=== PATIENT | male | born 2000 | race Caucasian/White ===

== ENCOUNTER 2021-04-13 15:30 | Outpatient (RCR) | payer OTHER, SELFPAY ==
--- NOTE | 2021-03-24 11:35 | HP.OTEVAL_ITS ---
Patient's Visit Information LENNY MORTON is a 20 year old M, referred to Occupational Therapy by VANESSA PGEUERO, with a diagnosis of right radial head fx / left Monteggia fx. Date of Evaluation: 03/22/21 Occupational Therapist: Katarina Reyes, OTR/L, CHT - Subjective This 20 year old male was seen for OT with dx of left Monteggia fracture -right radial head fx. pt had fall at college and friend took pt to ER- rec'd pt to see UE specialist and they were able to get apt with [facility]. pt has sx on 02/28/2021. pt is 3 weeks and 1 day s/p arrives to session with bilateral hinge elbow braces correctly on. pts mom with pt and states he will return to college in about 4 weeks and will not be able to continue with therapy at this facility- - ROM Shoulder: right/left WNL Elbow: right -50/110 left -60/120 Forearm: right supination 30* left 75* pronation R/L WNL - Strength Strength Comments: will test at later date - Sensation Sensation Comments: denies - Quick DASH-Disab of Arm,Shoulder& Hand Quick DASH Score: 40.0000 - Goals Goal:: hold strengthening until pt in 6-8 weeks s/p Goal:: pt will demo right elbow ROM to -10/135 or greater and left elbow ROM to -5/135 or greater to increase pts ind. with ADLs. pt will demo right forearm supination to 70* or greater to perform ADLs at ind, level by d/c Goal:: pt will report in 3 weeks he is able to use BUE for self feeding/dressing and bathing - Rehabilitation General Assessment: pt arrives 3 weeks 1 days s/p from right radial head open reduction total fixation and right lateral collateral lig. repair. Left medial collateral ligament repair- left Monteggia fx open reduction internal fixation- left lateral epicondyle open reduction internal fixation 02/28/21 - please provide eval tx- start hinge brace at 90* extension 10-15* per week as tolerated. pt limited with functional use of bilateral UE with ADls. pt would benefit from skilled OT services 2x week for 6 weeks to assist in pts full recovery of his ROM and strength. Today therapist ed. pt on ROM and use of hinge braces- mom was with pt entire session- both demo understanding and agree to POC. Rehabilitation Potential: Good - Anticipated Interventions A/AAROM/PROM, Modalities, Joint Protection/Energy Conservation, Ergonomic Education, Education re Diagnosis - Visit Plan Frequency: 2x /Week Duration: 6 Weeks General Plan: pt arrives 3 weeks 1 days s/p from right radial head open reduction total fixation and right lateral collateral lig. repair. Left medial collateral ligament repair- left Monteggia fx open reduction internal fixation- left lateral epicondyle open reduction internal fixation 02/28/21 - please provide eval tx- start hinge brace at 90* extension 10-15* per week as tolerated. TEXT: Thank you for the opportunity to evaluate your patient. For Medicare and Medicare HMO plans, please review the plan of care and approve it. It will need to be FAXED BACK to us at [phone] for Medicare purposes. Please let me know if there are questions or concerns regarding this plan of care. Physician Signature: Date:
--- NOTE | 2021-08-18 08:55 | HP.OTDCSUM ---
It has been my pleasure to treat LENNY MORTON under orders from VANESSA PEGUERO, for the diagnosis of right radial head fx / left Monteggia fx for a total of 7 visit(s). Please see the following information for a summary of their discharge status. % Improvement: 75 Objective/Function: right -20/140. left -20/145 Patient Goals: Regain Mobility, Regain Strength, Use Hand/Wrist/Arm Normally Again, Be More Independent in ADLS Goal:: hold strengthening until pt in 6-8 weeks s/p Goal:: pt will demo right elbow ROM to -10/135 or greater and left elbow ROM to -5/135 or greater to increase pts ind. with ADLs. pt will demo right forearm supination to 70* or greater to perform ADLs at ind, level by d/c Goal:: pt will report in 3 weeks he is able to use BUE for self feeding/dressing and bathing Plan: D/C as pt is returning to school out of town. If there are questions or concerns regarding this patient's occupational therapy, please fell free to call me at [phone]. Thank you for the referral of this patient. Sincerely, Katarina Reyes, OTR/L, CHT
== END 2021-04-13 19:00 | disposition home or self-care (01) ==
LOC: OT 15:30
PROVIDERS: PCP Pediatrics
DX: S52.121D Displaced fracture of head of right radius, subsequent encounter for closed fracture with routine healing (principal); S52.272D Monteggia's fracture of left ulna, subsequent encounter for closed fracture with routine healing; X58.XXXD Exposure to other specified factors, subsequent encounter
CPT/HCPCS: 97110; 97140; 97166; 97530

== ENCOUNTER 2022-07-14 07:52 | Emergency (ER) | payer OTHER, SELFPAY ==
[2022-07-14 07:53] VITALS: BP 145/108; PULSE 128; RESP 20; TEMP 35.7; O2SAT 96; BMI 44.2
--- NOTE | 2022-07-14 08:35 | EX.ED.DYSGE1 ---
HPI History of Present Illness Chief Complaint: Edema Informant: patient and parent Narrative Narrative: Here with mother for evaluation increasing hand itching redness swelling along with upper lip swelling since last evening. This past Saturday was seen at his school clinic due to upper respiratory symptoms prescribed prednisone and Robacin, he states he developed hives since then throughout his body he went to now clinic yesterday. He was started on hydroxyzine and Pepcid. Urticarial lesions has resolved. These new symptoms develop. No history of similar. No changes in foods. Denies trouble swallowing or dyspnea. History of asthma. He has been on steroids in the past. No medications taken the day due to concerns of recent events. There is no family history of sudden swelling per mother. Prior similar symptoms: No PFSH PFSH Medical History Impacted cerumen of both ears Home Medications famotidine 20 mg tablet (Pepcid) 20 mg PO BID #14 tabs 07/13/22 [Rx Last Taken Unknown] hydroxyzine HCl 25 mg tablet 25 mg PO TID PRN itching #28 tabs 07/13/22 [Rx Last Taken Unknown] dexamethasone 6 mg tablet 12 mg PO .once #2 tabs 07/14/22 [Rx Last Taken Unknown] diphenhydramine HCl 25 mg tablet (Banophen) 25 mg PO TID PRN itching #30 tabs 07/14/22 [Rx Last Taken Unknown] Allergy/AdvReac Type Severity Reaction Status Date / Time No Known Allergies Allergy Verified 07/14/22 07:55 Social History Smoking Status: Never smoker ROS ROS ED Constitutional Constitutional ED: Denies chills, fever(s) or sweats Eyes Eyes: Denies change in vision ENT ENT ED: Denies dysphagia or sore throat Cardiovascular Cardiovascular: Denies chest pain, leg edema, palpitations or racing heartbeat Respiratory/Chest Respiratory/Chest: Denies cough, dyspnea or dyspnea on exertion Gastrointestinal Gastrointestinal: Denies abdominal pain, diarrhea, nausea or vomiting Genitourinary Genitourinary ED: Denies dysuria, hematuria or urinary frequency Musculoskeletal Musculoskeletal: Denies back pain, extremity pain or neck pain Integumentary Reports other Details: Hand itching and swelling, upper lip swelling ; Denies rash or wounds Neurologic Neurologic: Denies headache(s), paresthesias or weakness EXAM Physical Exam Const Vital Signs: 07/14/22 07:53 07/14/22 09:07 Temperature 96.2 F L Temperature Source Temporal Pulse Rate 128 H Respiratory Rate 20 H Respiratory Effort Normal Non-Labored Respiratory Pattern Normal Blood Pressure 145/108 H Blood Pressure Mean 120 Pulse Ox 96 Oxygen Delivery Method Room Air Positive well nourished and well developed General Appearance ED: well developed and NAD HEENT Reports moist mucous membranes HEENT Narrative: upper mid lip swelling, no tongue swelling airway patent, no stridor. normocephalic and atraumatic Eyes PERRL, EOMs intact bilaterally and conjunctivae normal General Eye ED: Yes normal appearance of both eyes Neck no lymphadenopathy and supple General: Negative for tenderness Chest Wall Chest: Negative for tenderness Resp normal respiratory effort and normal air movement Effort and Inspection: symmetric chest movement; Negative for respiratory distress Cardio regular rate, regular rhythm and no murmurs Peripheral Pulses: pulses 2+ throughout GI normal to inspection, nondistended, normoactive bowel sounds and non-tender Palpation: Negative for guarding or rebound tenderness present Back/Spine no CVA tenderness and no thoracic nor lumbar tenderness Extremity Extremity Narrative: Bilateral palms with erythema flushing throughout, slight swelling. No vesicles. No open wounds General Extremety ED: Negative for edema or tenderness General Extremity: Negative for edema Neuro oriented x3 and no sensory deficits noted Sensorium / Orientation: awake and alert Skin no wounds Skin Narrative: See above MDM MDM MDM Narrative Medical decision making narrative: Interventions / MDM: Differential diagnosis: Angioedema, allergic reaction, Diagnosis considered but do not suspect: N/A My EKG interpretation: N/A Imaging independently reviewed and interpreted by myself: N/A External documents reviewed: N/A Test considered but not ordered:N/A ED course: Patient nontoxic, angioedema with hand swelling. No airway compromise. Treat with oral dexamethasone due to no improvement with prednisone, Benadryl, Pepcid was given. He was monitored. Re-evaluation: stable, improving symptoms including improving erythema of the hands, improved swelling of the lips. Additional redose of dexamethasone with 3 days of continuous Pepcid, Benadryl as needed. Discussed possibility of reaction to hydroxyzine as this is a new medication. We will hold this medication. ENT follow-up for allergy testing as needed. Return precautions. All questions were answered. Disposition discussed with patient/family/significant other: Patient and mother Case discussed with consulting clinician: N/A Discharge Plan Triage Chief Complaint: Edema ED Provider: Charlie Ventura Dx/Rx/DC Orders Clinical Impression: Angioedema, Allergic reaction Instructions: ED General Allergic Reactions, ED Angioedema Prescriptions: New dexamethasone 6 mg tablet 12 mg PO .once Qty: 2 0RF Rx Instructions: take on 07/17/22 diphenhydramine HCl [Banophen] 25 mg tablet 25 mg PO TID PRN (Reason: itching) Qty: 30 0RF No Action hydroxyzine HCl 25 mg tablet 25 mg PO TID PRN (Reason: itching) Qty: 28 0RF famotidine [Pepcid] 20 mg tablet 20 mg PO BID Qty: 14 0RF Primary Care Provider: Care Physician,No Primary Referrals: Addi Capellan MD [Non-Staff] - John Decker MD [Med Staff - Active Staff] - 1-2 Weeks Activity Restrictions/Additional Instructions: Hold prednisone and hydroxyzine. Continue your Pepcid. Take dexamethasone again on Saturday. Use Benadryl as needed. May follow-up with ENT for allergy testing or your PCP for referral as an outpatient. Return if worsening symptoms. Disposition Disposition: Home, Self Care Discharge Date/Time: 07/14/22 10:20
[2022-07-14] MEDS: DiphenhydrAMINE 25 MG Capsule 50 MG PO (09:02)
[2022-07-14] MEDS: Famotidine 20 MG Tablet PO (09:03)
[2022-07-14] MEDS: dexAMETHasone 4 MG Tablet 12 MG PO (09:03)
== END 2022-07-14 10:20 | disposition home or self-care (01) ==
PROVIDERS: Emergency Provider Emergency Medicine; Visit Provider Emergency Medicine
DX: T78.3XXA Angioneurotic edema, initial encounter (principal); T78.40XA Allergy, unspecified, initial encounter; J45.909 Unspecified asthma, uncomplicated; Z79.52 Long term (current) use of systemic steroids
CPT/HCPCS: 99283

== ENCOUNTER → 2025-01-01 | Outpatient (CLI) | payer OTHER, SELFPAY ==
--- NOTE | 2025-01-01 09:25 | RAD_ITS ---
PROCEDURE: WRIST MIN 3 VIEWS 01/01/2025 REASON FOR EXAM: LEFT WRIST INJURY TECHNIQUE: Procedure Code: RADWR Modality: DX Procedure: WRIST MIN 3 VIEWS Laterality: Left COMPARISON: None. RAD/Wrist min 3 Views IMPRESSION: A comminuted Fracture of the distal left radius is seen, extending to the radio carpal compartment medially and also to the distal radioulnar compartment of the left wrist. No significant degree of ulnar variance is noted. Satisfactory carpal alignmen t is otherwise noted. Reading Location: [id number]
== END | disposition home or self-care (01) ==
LOC: MTRAD 09:25
PROVIDERS: Referring Provider Physician Assistant Surgical; Visit Provider Physician Assistant Surgical
DX: S66.912A Strain of unspecified muscle, fascia and tendon at wrist and hand level, left hand, initial encounter (principal)
CPT/HCPCS: 73110

== ENCOUNTER → 2025-01-13 | Outpatient (CLI) | payer OTHER, SELFPAY | END | disposition home or self-care (01) | LOC: MTRAD 17:23 | PROVIDERS: Referring Provider Physician Assistant; Visit Provider Physician Assistant | DX: S93.401A Sprain of unspecified ligament of right ankle, initial encounter (principal) | CPT/HCPCS: 73610 ==